=== PATIENT | male | born 1990 | race American Indian/Alaskan Native ===

== ENCOUNTER 2024-10-05 02:22 | Emergency (ER) | payer OTHER, SELFPAY ==
[2024-10-05 02:23] VITALS: BMI 33.4
[2024-10-05 02:38] VITALS: BP 145/88; PULSE 110; RESP 18; TEMP 37.1; O2SAT 99
--- NOTE | 2024-10-05 02:43 | PD.EDRME ---
Rapid Medical Screening Exam RME Arrival date/time: 10/05/24 02:22 34-year-old male with past medical history of kidney stones presents emergency department complaining of epigastric pain with nausea and vomiting that started last night. Chief Complaint: Abdominal Pain Vital signs: Vital Signs Temperature 98.7 F 10/05/24 02:38 Pulse Rate 110 H 10/05/24 02:38 Respiratory Rate 18 10/05/24 02:38 Blood Pressure 145/88 H 10/05/24 02:38 Pulse Oximetry (%) 99 10/05/24 02:38 Oxygen Delivery Method Room Air 10/05/24 02:38 Vital signs reviewed by provider: Yes
--- NOTE | 2024-10-05 02:57 | EDNOTE_ITS ---
ED Abdominal Pain RME/HPI General Chief Complaint: Abdominal Pain Stated complaint: EPIGASTIC PAIN, N/V Time seen by provider: 10/05/24 02:55 Arrival date/time: 10/05/24 02:22 RME / HPI RME / HPI narrative: 10/05/24 02:22 34-year-old male with past medical history of kidney stones presents emergency department complaining of epigastric pain with nausea and vomiting that started last night. ---- Dr. Candelaria?s Main ED Evaluation: 34yo male presents to the ED for a chief complaint of epigastric pain x 1 day. Patient states his pain initially started as mild yesterday morning, reporting it worsened yesterday ~1200 after he ate barbeque while at work. He states his pain has been constant and progressively getting worse, so he came in for evaluation. Patient reports associated burping, nausea, and vomiting. He took Tums without any alleviation of symptoms. Denies any fever, chills or any other associated symptoms. No known allergies. PCP: [facility] Related Data Previous Rx's ?Medication ?Instructions ?Recorded ondansetron 4 mg disintegrating 4 mg PO Q8H PRN nausea and 10/05/24 tablet vomiting #7 tabs Allergies Allergy/AdvReac Type Severity Reaction Status Date / Time No Known Allergies Allergy Verified 10/05/24 02:25 Review of Systems Review of Systems Systems Reviewed: All systems reviewed, normal except as documented Narrative Review of Systems: Gen: No fever, no chills, no weight loss EYES: No discharge, no visual changes, no pain HEENT: No ear pain, no congestion, no sore throat PULM: No shortness of breath, no cough, no congestion CV: No chest pain, no dyspnea on exertion, no palpitations GI: + nausea, + vomiting, no diarrhea, + pain, no constipation : No frequency, no urgency, no dysuria Musc/skel: No joint pain, no back pain Skin: No rash. Warm and dry. Psyc: No hallucinations, no depression Heme/Lymph: No easy bleeding or bruising tendencies Neuro: No weakness, no headache Past Medical History Past Medical History CARDIAC: Negative Cardiac Disorders or Congestive Heart Failure RESPIRATORY: Negative Chronic Obstructive Pulmonary Disease (COPD) or Asthma GENITOURINARY: Negative Renal Disease ENDOCRINE: Negative Diabetes Mellitus Type 1 or Diabetes Mellitus Type 2 HEMATOLOGIC: Negative Sickle Cell Disease Social History SMOKING STATUS: Never smoker ED Exam Narrative Physical exam: GENERAL APPEARANCE: AxOx4, generally well-appearing, no acute distress. HEENT: NC, AT. MMM. EOMI, clear conjunctiva, oropharynx clear. NECK: Supple without lymphadenopathy. No stiffness or restricted ROM. HEART: Normal rate and regular rhythm, normal S1/S1, no m/r/g LUNGS: CTAB, moving air well. No crackles or wheezes are heard. ABDOMEN: Soft, mild epigastric pain and tenderness on palpation, nondistended with good bowel sounds heard. BACK: No midline C/T/L spine pain or deformity, No CVAT, no obvious deformity. EXTREMITIES: Without cyanosis, clubbing or edema. MUSCULOSKELETAL: FROM of all major joints, no chest tenderness NEUROLOGICAL: Grossly nonfocal. Alert and oriented, moving all 4 extremities. CN not formally tested but appear grossly intact. Observed to ambulate with normal gait. Skin: Warm and dry without any rash. Course Quality Measures none Orders Category Date Time Status Lidocaine 2% Viscous [Xylocaine 2% Viscous] Med 10/05/24 02:56 Discontinued 15 ml PO X1 ONE mg Hyd/Al Hyd/Orion Susp [Maalox Susp] Med 10/05/24 02:56 Discontinued 30 ml PO X1 ONE Vital Signs Vital signs: Vital Signs Temperature 98.7 F 10/05/24 02:38 Pulse Rate 110 H 10/05/24 02:38 Respiratory Rate 18 10/05/24 02:38 Blood Pressure 145/88 H 10/05/24 02:38 Pulse Oximetry (%) 99 10/05/24 02:38 Oxygen Delivery Method Room Air 10/05/24 02:38 Pulse ox is 99% on room air, which is normal according to my interpretation. Abdominal Pain MDM MDM Narrative MDM Narrative:: Scribe Attestation: 10/04/24 - Lashonda, Faith Boss, scribing for and in the presence of Dr. Candelaria. Patient data External records reviewed:: [facility] previous records (Per chart review, patient was seen here on 07/26/22 for uterolithiasis.) Clinical information provided by:: patient Social determinants that could affect healthcare access:: none Patient has the following chronic illnesses:: kidney stones How is presenting disease/condition affected by chronic disease/condition?: uneffected by Evaluation data The following diagnostics were reviewed and interpreted by me:: other (specify) (none) Lab and/or radiology exams considered but not ordered:: none Interpretation Summary: none Medications / Prescriptions Medications or Prescriptions considered but not ordered:: none Medication administrations:: Medication Administration History Discontinued Medications Al Hydrox/Mg Hydrox/Simethicone (Mg Hyd/Al Hyd/Orion (Maalox Reg) Susp 30 Ml Udc) 30 ml PO X1 ONE Stop: 10/05/24 02:57 Lidocaine HCl (Lidocaine Viscous 2% 15 Ml Udc) 15 ml PO X1 ONE Stop: 10/05/24 02:57 see above Consultations Consultation(s) initiated? (list below): No Diagnosis Differential diagnosis abdominal pain: other (gastritis, PUD, gastric ulcer) Most likely diagnosis given after review of the tests above:: see below Admission Indicated Admission indicated?: not indicated Admission Request Was there a request for admission?: No Disposition Plan Disposition Plan: Discharge Discharge Attestation Discharge Attestation: The patient and all family members were given an opportunity to ask questions and understood the discharge instructions. Discharge instructions specifically effects, indications for sooner follow up or return to the emergency department, and the expected course of current diagnosis. Patient condition: Stable Discharge Plan Plan Patient Disposition: HOME (Self Care) Prescriptions/Referrals Prescriptions/Med Rec: New ondansetron 4 mg tablet,disintegrating 4 mg PO Q8H PRN (Reason: nausea and vomiting) Qty: 7 0RF Referrals: Brent Boss MD [Primary Care Provider] - In 1 week Problem List Clinical Impression: Gastritis Patient/Caregiver Discharge Instructions Education Materials: ED PEPTIC ULCER vs GASTRITIS Additional Instructions: Please take knrf-vwi-afpfqzi famotidine (Pepcid) 20 mg twice a day for the next 7 days. Avoid fatty, greasy, spicy foods, and excessive alcohol. Avoid gqhw-esc-xumnzom anti-inflammatory such as ibuprofen, Aleve, Advil, and/or Motrin. Follow-up with your primary care doctor in 5 to 7 days if symptoms or not improving. You can return to the emergency department symptoms worsen or if you notice any new, concerning issues. Print Language: Swiss Stand Alone Forms: [employer] Info., Patient Portal Info Letter
[2024-10-05] MEDS: LIDOCAINE VISCOUS 2% 15 ML UDC PO (03:23)
[2024-10-05] MEDS: MG HYD/AL HYD/SIME (Maalox Reg) SUSP 30 ML UDC PO (03:23)
== END 2024-10-05 03:34 | disposition home or self-care (01) ==
PROVIDERS: Emergency Provider Emergency Medicine; PCP Family Medicine
DX: K29.70 Gastritis, unspecified, without bleeding (principal)
CPT/HCPCS: 80053; 81001; 83690; 85025; 99283; J3490; A9270

== ENCOUNTER 2025-05-01 12:42 | Emergency (ER) | payer OTHER, SELFPAY ==
[2025-05-01 12:43] VITALS: BMI 33.5
[2025-05-01 13:04] VITALS: BP 132/84; PULSE 82; RESP 18; TEMP 36.8; O2SAT 97
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
[2025-05-01 13:58] LABS: Basophils # (Auto) 0.1 Thou/mm3 (0.0-0.2); Basophils % (Auto) 1 % (0-2.5); Eosinophils # (Auto) 0.2 Thou/mm3 (0.0-0.5); Eosinophils % (Auto) 2 % (0-10); Hematocrit 41.3 % (41.0-53.0); Hemoglobin 14.6 g/dL (13.5-16.0); Immature Granulocytes % (Auto) 0 % (0-0); Immature Granulocytes Auto 0.02 Thou/mm3 (0.00-0.00); Lymphocytes # (Auto) 2.5 Thou/mm3 (1.0-4.8); Lymphocytes % (Auto) 27 % (10-50); Mean Corpuscular HGB Conc 35.4 g/dl (31.0-37.0); Mean Corpuscular Hemoglobin 29.5 pg (25.0-35.0); Mean Corpuscular Volume 83 fL (80-100); Monocytes # (Auto) 0.9 Thou/mm3 (0.0-0.8); Monocytes % (Auto) 10 % (0-12); Neutrophils # (Auto) 5.6 Thou/mm3 (1.8-7.7); Neutrophils % (Auto) 60 % (37-80); Nucleated Red Blood Cell % 0 /100 WBC (0); Platelet Count 265 Thou/mm3 (140-440); RDW Standard Deviation 41.8 fL (35.1-43.9); Red Blood Count 4.95 Miln/mm3 (4.50-5.90); White Blood Count 9.3 Thou/mm3 (3.8-10.6)
[2025-05-01 14:18] LABS: Alanine Aminotransferase 48 U/L (10-49); Albumin, Serum 4.6 gm/dL (3.5-5.0); Albumin/Globulin Ratio 1.9 (1.2-2.2); Alkaline Phosphatase 76 U/L (46-116); Anion Gap 9 (7-16); BUN/Creatinine Ratio 10 Ratio (12-20); Bilirubin,Total 0.6 mg/dL (0.3-1.2); Blood Urea Nitrogen 10 mg/dL (9-23); Calcium 9.3 mg/dL (8.3-10.6); Calcium (Corrected) 9.3 mg/dL (8.5-10.1); Carbon Dioxide 27.2 mMol/L (20.0-31.0); Chloride 107 mMol/L (98-107); Estimated Creatinine Clearance 121.7 mL/min (>60); Globulin 2.4 gm/dL (2.3-3.5); Glucose 95 mg/dL (74-106); Osmolality,Calculated 283 (275-295); Sodium 143 mMol/L (136-145); eGFR > 60 See Note
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
== END 2025-05-01 15:42 | disposition home or self-care (01) ==
PROVIDERS: Nurse Practitioner Family; Emergency Provider Family Medicine; PCP Family Medicine
DX: S09.90XA Unspecified injury of head, initial encounter (principal); S00.83XA Contusion of other part of head, initial encounter; S05.12XA Contusion of eyeball and orbital tissues, left eye, initial encounter; S05.11XA Contusion of eyeball and orbital tissues, right eye, initial encounter; S19.9XXA Unspecified injury of neck, initial encounter; R42 Dizziness and giddiness; W50.0XXA Accidental hit or strike by another person, initial encounter; Y93.71 Activity, boxing; Y92.59 Other trade areas as the place of occurrence of the external cause
CPT/HCPCS: 36415; 70450; 72125; 80053; 85025; 99284